=== PATIENT | female | born 1975 ===

== ENCOUNTER 2016-09-16 10:46 | Emergency (ER) | payer OTHER ==
[2016-09-16 10:46] VITALS: BMI 38.7
--- NOTE | 2016-09-16 14:10 | C.PDOC ---
History Of Present Illness 41-year-old female, presents to the emergency department with complaints of back pain. Patient states she has been experiencing non-traumatic lower back pain that started several months ago. Pain is intermittent in nature and non- radiating. States it is worse with movement. Pain worsened last night resulting in him coming to the ED for evaluation. Denies vomiting, numbness/tingling, weakness, saddle anaesthesia, urinary/bowel incontinence/changes, or any other associated associated symptoms. No other complaints at this time. No meds taken for relief. Time Seen by Provider: 09/16/16 11:29 Chief Complaint (Nursing): Back Pain Past Medical History Reviewed: Historical Data, Nursing Documentation, Vital Signs Vital Signs: Last Vital Signs Temp 97.9 F 09/16/16 14:23 Pulse 67 09/16/16 14:23 Resp 20 09/16/16 14:23 BP 108/73 09/16/16 14:23 Pulse Ox 98 09/16/16 16:41 - Medical History PMH: Anxiety, Bronchitis, Depression (NEW ONSET IN EVALUATION PHASE WITH PSYCHIATRY), HTN (IN MY "TWENTIES" CONTROLLED BY DIET CHANGES), Migraine Denies: Chronic Kidney Disease Surgical History: Cholecystectomy Family History: States: Unknown Family Hx - Social History Hx Tobacco Use: Yes Hx Alcohol Use: No Hx Substance Use: No - Immunization History Hx Tetanus Toxoid Vaccination: No Hx Influenza Vaccination: No Hx Pneumococcal Vaccination: No Review Of Systems Except As Marked, All Systems Reviewed And Found Negative. Constitutional: Negative for: Fever, Chills Respiratory: Negative for: Cough Gastrointestinal: Negative for: Vomiting Musculoskeletal: Positive for: Back Pain Skin: Negative for: Rash Neurological: Negative for: Weakness, Numbness Physical Exam - Physical Exam Appears: Non-toxic, Toxic, No Acute Distress Skin: Warm, Dry, No Rash Head: Atraumatic, Normacephalic Eye(s): bilateral: Normal Inspection, PERRL Neck: Normal ROM Back: Decreased ROM (Secondary to pain.), Paraspinal Tenderness (Lumbar, Thoracic. ) Extremity: Normal ROM Neurological/Psych: Oriented x3, Normal Speech ED Course And Treatment O2 Sat by Pulse Oximetry: 98 Progress Note: [place] Rx report reviewed. Patient last took Tylenol/Codeine last month. Patient treated with Toradol IM, Valium and Dilaudid. On reassessment, patient is resting comfortably, with improvement of back pain, no fever, no bony tenderness, no numbness, no weakness, or abdominal pain. Patient is ambulatory in the emergency department with no signs of discomfort. Patient was advised to follow up with their physician in 1-2 days. Disposition - Disposition Disposition: HOME/ ROUTINE Disposition Time: 14:10 Condition: STABLE Additional Instructions: Follow up with PMD within 1-2 days. Return to ED if feel worse. Prescriptions: Ibuprofen [Motrin Tab] 600 mg PO Q8 #30 tab oxyCODONE/Acetaminophen [Percocet 5/325 mg Tab] 1 tab PO QID PRN #20 tab PRN Reason: Pain diaZEpam [Valium] 2 mg PO TID #15 tab Instructions: Back Pain (ED) - Clinical Impression Clinical Impression: Low back pain - Scribe Statement The provider has reviewed the documentation as recorded by the Tim Dunn All medical record entries made by the Ezequielibjordyn were at my direction and personally dictated by me. I have reviewed the chart and agree that the record accurately reflects my personal performance of the history, physical exam, medical decision making, and the department course for this patient. I have also personally directed, reviewed, and agree with the discharge instructions and disposition.
[2016-09-16 14:25] VITALS: BP 108/73; PULSE 67; RESP 20; TEMP 97.9
[2016-09-16 16:39] VITALS: O2SAT 98
== END 2016-09-16 14:25 | disposition home or self-care (01) ==
LOC: C.ER 10:46
DX: M54.5 Low back pain (principal)
CPT/HCPCS: 96372; 99284; J1170; J1885